=== PATIENT | male | born 1965 ===

== ENCOUNTER 2021-01-09 20:12 | Emergency (ER) | payer SELFPAY ==
[2021-01-09] MEDS ORDERED: Morphine 4 MG/ML Syringe IVPUSH ONE (20:35)
[2021-01-09] MEDS ORDERED: Diphtheria,Pertussis(Acell),Tetanus Vaccine 0.5 ML Syringe IM ONE (21:48)
[2021-01-09] MEDS ORDERED: Morphine 2 MG/ML SYRINGE IVPUSH ONE (22:22)
[2021-01-09] MEDS ORDERED: Lidocaine 1% 20 ML MDV INJECT ONE (22:22)
[2021-01-09] MEDS ORDERED: Lidocaine 1% 10 ML MDV ONE (22:27)
--- NOTE | 2021-01-09 22:29 | EDM.PDOC ---
ED HPI GENERAL MEDICAL PROBLEM - General Chief Complaint: Upper Extremity Injury/Pain Stated Complaint: TWO SEVERED FINGERS Time Seen by Provider: 01/09/21 20:40 Source of Information: Reports: Patient History Limitations: Reports: No Limitations - History of Present Illness INITIAL COMMENTS - FREE TEXT/NARRATIVE: Patient is a 55-year-old male that is right-hand dominant presenting with a chief complaint of finger amputation. Patient has no significant medical problems. Onset of injury occurred about 30 minutes prior to arrival in the emergency room. 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 Patient immediately applied direct pressure came to the emergency room. No other interventions performed prior to arrival. Patient did bring fingertips with him on ice. Any additional injuries. Pain is severe. Nothing makes symptoms better or worse. - Related Data Allergies Allergy/AdvReac Type Severity Reaction Status Date / Time No Known Allergies Allergy Verified 01/09/21 20:18 Home Meds: Home Meds Ketoconazole [Nizoral 2% Crm] 1 applic TOP BID #1 gm 01/10/21 [Rx] Past Medical History Musculoskeletal History: Reports: Amputation - Past Surgical History GI Surgical History: Reports: Hernia Repair/Other Social & Family History - Tobacco Use Tobacco Use Status *Q: Current Every Day Tobacco User Years of Tobacco use: 40 Packs/Tins Daily: 0.7 - Caffeine Use Caffeine Use: Reports: Coffee - Recreational Drug Use Recreational Drug Use: No Review of Systems - Review of Systems Review Of Systems: See Below Constitutional: Denies: Chills Ears: Denies: Dizziness Respiratory: Denies: Shortness of Breath Cardiovascular: Denies: Chest Pain Skin: Denies: Rash ED EXAM, GENERAL - Physical Exam Exam: See Below Free Text/Narrative:: I have reviewed the triage vital signs Const: Well nourished, well developed, appears stated age Eyes: Pupils Equal and reactive to light bilaterally, no conjunctival injection HENT: No signs of trauma or swelling, Neck supple without meningismus CV: Regular Rate Rhythm, Warm, well-perfused extremities RESP: Unlabored respiratory effort GI: soft, non-tender, non-distended, no masses MSK: Examination of the right hand demonstrates amputation of the right index and right middle fingers and around the DIP. No other lacerations noted. No s welling noted. No other areas of injury. Skin: Warm, dry. No rashes Neuro: Alert, risk assessor II-XII grossly intact. Sensation and motor function of extremities grossly intact. Psych: Appropriate mood and affect. ED TRAUMA EXTREMITY PROCEDURES - Laceration/Wound Repair Right Distal Digit - 3rd (Middle) Lac/Wound Length In cm: 4 Appearance: Muscle, Irregular Distal NVT: Other (Amputation) Anesthetic Type: Digital Local Anesthesia - Lidocaine (Xylocaine): 1% Plain Local Anesthetic Volume: 5cc Skin Prep: Providone-Iodine (Betadine) Exploration/Debridement/Repair: Minimal Debridement Suture Size: 3-0 # of Sutures: 4 (1 [id number] stitch was used with Vicryl for hemostasis) Drain Placement: No Sterile Dressing Applied: Provider Course - Vital Signs Last Recorded V/S: Last Vital Signs Temp 36.3 C 01/09/21 20:15 Pulse 85 01/09/21 20:15 Resp 16 01/09/21 20:15 BP 132/97 H 01/09/21 20:15 Pulse Ox 91 L 01/09/21 20:15 - Orders/Labs/Meds Orders: Active Orders 24 hr Category Date Time Status Hand Comp Min 3V Rt [CR] Stat Exams 01/09/21 20:35 Taken Labs: Laboratory Tests 01/09/21 Range/Units 20:24 SARS-CoV-2 RNA ([facility]) Negative (NEGATIVE) Meds: Medications Discontinued Medications Generic Name Dose Route Start Last Admin Trade Name Freq PRN Reason Stop Dose Admin Diphtheria/Tetanus/Acell Pertussis 0.5 ml 01/09/21 21:48 01/09/21 22:38 Diphtheria,Pertussis(Acell),Tetanus Vaccine 0.5 Ml Syringe IM 01/09/21 21:49 0.5 ml .ONCE ONE Administration Lidocaine HCl 20 ml 01/09/21 22:22 01/10/21 00:58 Lidocaine 1% 20 Ml Mdv INJECT 01/09/21 22:23 Not Given ONETIME ONE Lidocaine HCl Confirm 01/09/21 22:27 01/10/21 00:58 Lidocaine 1% 10 Ml Mdv Administered 01/09/21 22:28 Not Given Dose 20 ml .ROUTE .STK-MED ONE Lidocaine HCl 20 ml 01/09/21 22:41 01/10/21 00:59 Lidocaine 1% 10 Ml Mdv INJECT 01/09/21 22:42 10 ml ONETIME ONE Administration Morphine Sulfate 6 mg 01/09/21 20:35 01/09/21 20:39 Morphine 4 Mg/Ml Syringe IVPUSH 01/09/21 20:36 6 mg ONETIME ONE Administration Morphine Sulfate 2 mg 01/09/21 22:22 01/09/21 22:38 Morphine 2 Mg/Ml Syringe IVPUSH 01/09/21 22:23 2 mg ONETIME ONE Administration Departure - Departure Time of Disposition: 23:59 Disposition: Home, Self-Care 01 Clinical Impression: Traumatic amputation of finger of right hand - Discharge Information Prescriptions: Ketoconazole [Nizoral 2% Crm] 1 applic TOP BID #1 gm Instructions: Living With an Amputation, Traumatic Finger Amputation Referrals: PCP,None [Primary Care Provider] - Forms: ED Department Discharge Additional Instructions: Please follow-up with [facility] in [place]. The phone number is [phone]. Is important that you were seen on Monday for follow-up. Otherwise, continue to take antibiotics prescribed and keep wound covered/clean and dry. Sepsis Event Note (ED) - Evaluation Sepsis Screening Result: No Definite Risk - Focused Exam Vital Signs: Vital Signs Temp Pulse Resp BP Pulse Ox 01/09/21 20:15 36.3 C 85 16 132/97 H 91 L - My Orders Last 24 Hours: My Active Orders 01/09/21 20:35 Hand Comp Min 3V Rt [CR] Stat - Assessment/Plan Last 24 Hours: My Active Orders 01/09/21 20:35 Hand Comp Min 3V Rt [CR] Stat Assessment:: Patient is a 55-year-old male presenting to the emergency room with 2 fingers were partially amputated. Patient had bleeding controlled with direct pressure in the emergency room. X-rays reviewed by myself demonstrate right index finger suffered traumatic amputation at the level of the DIP. Additionally, patient's middle finger shows evidence of traumatic amputation through the middle phalanx. With this information, consulted orthopedics, on-call surgeon at [facility] [place]. Their orthopedic surgeon reported no on-call hand surgeon over the weekend but they would be happy to follow-up with the patient on Monday should the patient not elect for reattachment. After lengthy discussion with patient regarding risks of benefits of attempt at reattachment versus more routine follow-up in the next 48 hours, patient elected to not to seek reattachment. He understands the time sensitive nature of this decision. Therefore, patient underwent washout, suture placement and dressing coverage of traumatically amputated fingers. He tolerated all this well. Hemostasis was achieved. Return precautions given his usual. Patient will be discharged with close follow-up with hand surgery. I explained at length that he would likely still need surgery to provide additional flaps for closure. Closure was not achieved here due to nature of patient's wounds and need for more technical closure. All questions were addressed and answered. Patient agrees with plan of care.
[2021-01-09] MEDS ORDERED: Lidocaine 1% 10 ML MDV INJECT ONE (22:41)
--- NOTE | 2021-01-10 09:14 | CR ---
Right hand: 3 views of the right hand were obtained. Comparison: No prior right hand study is available. Soft tissue and bony amputation is seen within the distal second finger occurring mostly within the DIP joint. Additional soft tissue and bony amputation is seen involving the distal third finger within the middle phalanx. There is a metallic foreign body seen within the base of the second finger which measures 3.2 mm. No additional fracture or other abnormality is appreciated. Impression: 1. Soft tissue and bony amputations within the distal right second and third fingers. 2. Small metallic foreign body projected within the base of the right second finger. Diagnostic code #3
== END 2021-01-10 00:33 | disposition home or self-care (01) ==
LOC: JD.ED 20:12
DX: S68.622A Partial traumatic transphalangeal amputation of right middle finger, initial encounter (principal); S68.620A Partial traumatic transphalangeal amputation of right index finger, initial encounter; S61.212A Laceration without foreign body of right middle finger without damage to nail, initial encounter; Z72.0 Tobacco use; Z23 Encounter for immunization; Z20.822 Contact with and (suspected) exposure to COVID-19; W26.8XXA Contact with other sharp object(s), not elsewhere classified, initial encounter
CPT/HCPCS: 12002; 73130; 87635; 90471; 90715; 96374; 96376; 99283; J2270; U0002

== ENCOUNTER 2025-01-22 20:43 | Emergency (ER) | payer MEDICAID ==
[2025-01-22] MEDS ORDERED: Sodium Chloride 0.9% 10 ML Syringe FLUSH PRN (20:48)
[2025-01-22 20:55] LABS: BASOPHILS ABSOLUTE AUTO 0.0 K/mm3 (0.0-0.2); BASOPHILS PERCENT AUTO 0.3 % (0.0-1.0); EOSINOPHILS ABSOLUTE AUTO 0.1 K/mm3 (0.0-0.4); EOSINOPHILS PERCENT AUTO 0.5 % (0.0-6.0); IMMATURE GRAN ABSOLUTE AUTO 0.05 K/mm3 (0.00-0.05); IMMATURE GRAN PERCENT AUTO 0.4 % (0.0-0.4); LYMPHOCYTES ABSOLUTE AUTO 1.7 K/mm3 (1.0-4.8); LYMPHOCYTES PERCENT AUTO 15.4 % (24.0-44.0); MEAN PLATELET VOLUME 8.5 fl (9.4-12.4); MONOCYTES ABSOLUTE AUTO 0.7 K/mm3 (0.0-0.8); MONOCYTES PERCENT AUTO 6.2 % (0.0-8.0); NEUTROPHILS ABSOLUTE AUTO 8.7 K/mm3 (1.8-7.7); NEUTROPHILS PERCENT AUTO 77.2 % (41.0-71.0); NRBC ABSOLUTE 0.00 (0.00-0.02); NRBC PERCENT 0.0 % (0.0-0.2); PLATELET COUNT,PLT 184 K/mm3 (150-400); RED BLOOD CELL COUNT 5.58 M/mm3 (4.52-5.90); WHITE BLOOD CELL COUNT,WBC 11.26 K/mm3 (3.9-11.3)
[2025-01-22] MEDS: Iopamidol 755 Mg/ML 100 ML Bottle IVPUSH ONE (21:16)
[2025-01-22] MEDS: Sodium Chloride 0.9% 10 ML Syringe FLUSH ONE (21:16)
[2025-01-22 21:17] LABS: INR 1.0
[2025-01-22 21:19] LABS: PTT,PARTIAL THROMBOPLSTIN TIME 23.9 SECONDS (21.7-31.4)
[2025-01-22 21:20] LABS: A/G RATIO 1.3 (1-2); ALANINE AMINOTRANSFERASE,ALT 28 U/L (16-63); ASPARTATE AMNIOTRANSFERASE,AST 19 U/L (15-37); BILIRUBIN TOTAL 0.6 mg/dL (0.2-1.0); BLOOD UREA NITROGEN,BUN 19 mg/dL (7-18); CARBON DIOXIDE,CO2 30 mEq/L (21-32); CHLORIDE,CL 104 mEq/L (98-107); CREATININE 1.1 mg/dL (0.7-1.3); ESTIMATED GFR 77 mL/min (>60); GLUCOSE RANDOM 131 mg/dL (70-99); POTASSIUM,K 4.7 mEq/L (3.5-5.1); PROTEIN TOTAL,TP 7.2 g/dl (6.4-8.2); SODIUM,NA 140 mEq/L (136-145); TROPONIN I HIGH SENSITIVITY 7 pg/mL (<=76)
== END 2025-01-22 22:23 ==
LOC: JD.ED 20:43
DX: I63.9 Cerebral infarction, unspecified (principal); I10 Essential (primary) hypertension; Z79.899 Other long term (current) drug therapy
CPT/HCPCS: 36415; 70450; 70496; 70498; 80053; 84484; 85025; 85610; 85730; 93005; 99285; J7030; Q9967; 93010; 99291